=== PATIENT | female | born 1970 ===

== ENCOUNTER 2017-09-07 11:06 | Emergency (ER) | payer OTHER ==
[2017-09-07 11:06] VITALS: BMI 31.8
[2017-09-07 11:19] VITALS: BP 120/76; PULSE 62; RESP 16; O2SAT 99
--- NOTE | 2017-09-07 11:56 | ED PDOC ---
HPI: General Adult Time Seen by Provider: 09/07/17 11:56 Chief Complaint (Nursing): Abnormal Skin Integrity Chief Complaint (Provider): leg pain History Per: Patient, Family (Patient's daughter at bedside is translating for patient in Sudanese) Additional Complaint(s): 37-year-old female presents with redness, pain and swelling to left leg. Patient states on Sunday she woke up with a small puncture wound to leg. She was seen by primary doctor and started on Bactroban but today presents to ED with worsening swelling, pain and redness. Patient denies fever or chills. No active drainage or bleeding from wound. PMD: Abdirashid Mchugh Past Medical History Reviewed: Historical Data, Nursing Documentation, Vital Signs Vital Signs: Last Vital Signs Temp 98.3 F 09/07/17 11:15 Pulse 62 09/07/17 11:15 Resp 16 09/07/17 11:15 BP 120/76 09/07/17 11:15 Pulse Ox 99 09/07/17 11:56 - Medical History PMH: No Chronic Diseases - Family History Family History: States: No Known Family Hx - Living Arrangements Living Arrangements: With Family - Social History Current smoker - smoking cessation education provided: No Ex-Smoker (has not smoked in the last 12 months): No Alcohol: None Drugs: Denies - Home Medications Home Medications: Ambulatory Orders Medication Instructions Recorded Naproxen [Naprosyn] 500 mg PO BID PRN #30 tab 03/04/16 Cyclobenzaprine [Cyclobenzaprine 10 mg PO TID PRN #15 tab 04/23/16 HCl] Naproxen [Naprosyn] 500 mg PO BID PRN #15 tablet 04/23/16 Amoxicillin/Clavulanate [Augmentin 1 tab PO BID #14 tab 09/07/17 875 MG-125 MG] Clindamycin [Cleocin] 300 mg PO QID #28 cap 09/07/17 Ibuprofen [Motrin Tab] 800 mg PO Q8 PRN #20 tab 09/07/17 - Allergies Allergies/Adverse Reactions: Allergies Allergy/AdvReac Type Severity Reaction Status Date / Time No Known Allergies Allergy Verified 09/07/17 11:45 Review of Systems ROS Statement: Except As Marked, All Systems Reviewed And Found Negative Constitutional: Negative for: Fever, Chills Musculoskeletal: Positive for: Other (left leg pain) Physical Exam - Reviewed Nursing Documentation Reviewed: Yes Vital Signs Reviewed: Yes - Physical Exam Appears: Positive for: Well, Non-toxic, No Acute Distress Skin: Positive for: Normal Color. Negative for: Rash Eye Exam: Positive for: Normal appearance Cardiovascular/Chest: Positive for: Regular Rate, Rhythm Respiratory: Positive for: Normal Breath Sounds Extremity: Positive for: Other (Puncture wound noted to medial left [place] with localized erythema, warmth and tenderness consistent with cellulitis, no abscess formation, no active drainage or bleeding, no erythematous streaking, normal distal sensation) Neurologic/Psych: Positive for: Alert, Oriented - ECG O2 Sat by Pulse Oximetry: 99 Pulse Ox Interpretation: Normal Medical Decision Making Medical Decision Making: Impression: Cellulitis of left leg Patient was given Motrin dose in ED. Prescriptions for Augmentin and clindamycin provided along with Motrin prescription. Advised elevation of leg and wound recheck in 2-3 days. Disposition - Clinical Impression Clinical Impression: Cellulitis of leg - Patient ED Disposition Is Patient to be Admitted: No Counseled Patient/Family Regarding: Diagnosis, Need For Followup, Rx Given - Disposition Referrals: [facility] [Outside] Disposition: Routine/Home Disposition Time: 12:52 Condition: STABLE Additional Instructions: Take prescription meds as directed. Elevate leg and keep area clean and dry. Wound recheck in 2-3 days. Prescriptions: Amoxicillin/Clavulanate [Augmentin 875 MG-125 MG] 1 tab PO BID #14 tab Clindamycin [Cleocin] 300 mg PO QID #28 cap Ibuprofen [Motrin Tab] 800 mg PO Q8 PRN #20 tab PRN Reason: Pain, Moderate (4-7) Instructions: Cellulitis (Skin Infection), Adult (DC) Forms: [employer] (Sudanese) Print Language: MALAY
[2017-09-07 14:44] VITALS: TEMP 98.9
== END 2017-09-07 13:35 | disposition home or self-care (01) ==
LOC: H.ER 11:06
DX: L03.116 Cellulitis of left lower limb (principal)

== ENCOUNTER 2018-02-10 11:35 | Emergency (ER) | payer OTHER ==
[2018-02-10 11:43] VITALS: BP 129/89; PULSE 62; RESP 16; TEMP 98.5; O2SAT 98; BMI 37.8
--- NOTE | 2018-02-10 12:29 | ED PDOC ---
HPI: Skin/Bite Injury Time Seen by Provider: 02/10/18 12:15 Chief Complaint (Nursing): Bite Chief Complaint (Provider): Bite History Per: Patient History/Exam Limitations: no limitations Onset/Duration Of Symptoms: Mins (just prior to arrival) Current Symptoms Are (Timing): Still Present Location Of Injury: Left: Forearm Quality Of Symptoms: Painful Severity: Moderate Additional Complaint(s): 47 year old female with no past medical history presents to the ED for an evaluation of a dog bite to her left forearm that occurred just prior to arrival. Patient reports that the dog is her dog, and its rabies vaccination is up to date. Patient reports having pain to the left forearm. Patient is unsure of last tetanus. Patient denies having any other complaints. PMD: Vivi Fink MD - Animal Bite Description Of The Animal: Other (patient's pet) Animal's Immunization Status: UTD Past Medical History Reviewed: Historical Data, Nursing Documentation, Vital Signs Vital Signs: Last Vital Signs Temp 98.5 F 02/10/18 11:43 Pulse 62 02/10/18 11:43 Resp 16 02/10/18 11:43 BP 129/89 02/10/18 11:43 Pulse Ox 98 02/10/18 11:43 MICHELA Report Viewed: Yes - Medical History PMH: No Chronic Diseases Denies: Chronic Kidney Disease - Surgical History Other surgeries: ear surgery - Family History Family History: States: No Known Family Hx - Social History Current smoker - smoking cessation education provided: No Alcohol: None Drugs: Denies - Immunization History Hx Tetanus Toxoid Vaccination: No Hx Influenza Vaccination: No Hx Pneumococcal Vaccination: No - Home Medications Home Medications: Ambulatory Orders Medication Instructions Recorded Naproxen [Naprosyn] 500 mg PO BID PRN #30 tab 03/04/16 Cyclobenzaprine [Cyclobenzaprine 10 mg PO TID PRN #15 tab 04/23/16 HCl] Naproxen [Naprosyn] 500 mg PO BID PRN #15 tablet 04/23/16 Amoxicillin/Clavulanate [Augmentin 1 tab PO BID #14 tab 09/07/17 875 MG-125 MG] Clindamycin [Cleocin] 300 mg PO QID #28 cap 09/07/17 Ibuprofen [Motrin Tab] 800 mg PO Q8 PRN #20 tab 09/07/17 Amoxicillin/Clavulanate [Augmentin 1 tab PO BID #10 tab 02/10/18 875 MG-125 MG] Ibuprofen [Motrin] 600 mg PO Q8 PRN #21 tab 02/10/18 - Allergies Allergies/Adverse Reactions: Allergies Allergy/AdvReac Type Severity Reaction Status Date / Time No Known Allergies Allergy Verified 09/07/17 11:45 Review of Systems ROS Statement: Except As Marked, All Systems Reviewed And Found Negative Musculoskeletal: Positive for: Other (left forearm pain) Physical Exam - Reviewed Nursing Documentation Reviewed: Yes Vital Signs Reviewed: Yes - Physical Exam Appears: Positive for: Well, Non-toxic, No Acute Distress Head Exam: Positive for: ATRAUMATIC, NORMOCEPHALIC Skin: Positive for: Normal Color, Warm, Dry Extremity: Positive for: Other (1 cm laceration to left forearm, moderate ecch ymosis surrounding) Neurologic/Psych: Positive for: Alert, Oriented (3x) - ECG O2 Sat by Pulse Oximetry: 98 (RA) Pulse Ox Interpretation: Normal - Progress ED Course And Treament: forearm xry: no fx no teeth/foreign body augmentin 875mg x 1 dose tdap 0.5 ml IM Wound irrigated with betadiene/normal saline. two steri strips placed on wound. Medical Decision Making Medical Decision Makin:15 Initial impression: 47 year old female with a dog bite. Initial plan: * XRay forearm left * adacel 0.5 ml IM * augmentin 875 mg-125 mg tab 1 tab PO * motrin tab 600 mg PO * reevaluation Scribe Attestation: Documented by Cristiane Trivedi, acting as a scribe for Rachel Abraham PA-C. Provider Scribe Attestation: All medical record entries made by the Scribe were at my direction and personally dictated by me. I have reviewed the chart and agree that the record accurately reflects my personal performance of the history, physical exam, medical decision making, and the department course for this patient. I have also personally directed, reviewed, and agree with the discharge instructions and disposition. Disposition - Clinical Impression Clinical Impression: Animal bite wound - Patient ED Disposition Is Patient to be Admitted: No - Disposition Disposition: Routine/Home Disposition Time: 12:48 Condition: FAIR Additional Instructions: REGRESA EN 2 GONZALES PARA REVISAR HERIDA Prescriptions: Amoxicillin/Clavulanate [Augmentin 875 MG-125 MG] 1 tab PO BID #10 tab Ibuprofen [Motrin] 600 mg PO Q8 PRN #21 tab PRN Reason: Pain, Moderate (4-7) Instructions: Animal Bites (DC) Forms: [facility] ED School/Work Excuse Print Language: BAHAMIAN
[2018-02-10] MEDS ORDERED: Tdap Vaccine 0.5 ml Vial (10-64 yrs) IM ONE (12:44)
[2018-02-10] MEDS: Amoxicillin-Clav 875-125 mg Tab PO STA (13:01)
[2018-02-10] MEDS: Tdap Vaccine 0.5 ml Vial (10-64 yrs) IM ONE (13:02)
--- NOTE | 2018-02-10 13:52 | RAD ---
Date of service: 02/10/2018 PROCEDURE: Radiographs of the Left Forearm HISTORY: dogbite COMPARISON: None available. TECHNIQUE: Frontal and lateral views obtained. FINDINGS: BONES: No evidence of acute displaced fracture nor dislocation. No obvious cortical destructive changes.. JOINT SPACES: Unremarkable. OTHER FINDINGS: Infiltration changes are seen within the medial soft tissues at the level of the mid to distal forearm with what appears represent small amount of subcutaneous air. Possibility of underlying cellulitis cannot be excluded. IMPRESSION: No evidence of acute displaced fracture nor dislocation.. No cortical destructive changes Infiltration changes and what appears to represent a small amount subcutaneous air within the medial soft tissues at the mid and distal forearm. Cellulitis not excluded.
== END 2018-02-10 13:30 | disposition home or self-care (01) ==
LOC: H.ER 11:35
DX: S51.852A Open bite of left forearm, initial encounter (principal); W54.0XXA Bitten by dog, initial encounter; Y92.89 Other specified places as the place of occurrence of the external cause

== ENCOUNTER 2018-02-12 17:16 | Emergency (ER) | payer OTHER ==
[2018-02-12 17:16] VITALS: BMI 37.8
[2018-02-12 17:27] VITALS: BP 136/83; PULSE 68; RESP 16; TEMP 98.8
[2018-02-12 18:20] VITALS: O2SAT 100
--- NOTE | 2018-02-12 18:23 | ED PDOC ---
HPI: Wound Care - HPI Time Seen by Provider: 02/12/18 17:29 Chief Complaint (Nursing): Wound Check History Per: Patient Additional Complaint(s): Pt. here for wound check on L forearm. States she was bitten by her dog 2 days ago and was seen in this ED. Currently on Augmentin. Offers no new complaints at this time. Denies fever, discharge. Past Medical History Reviewed: Historical Data, Nursing Documentation, Vital Signs Vital Signs: Last Vital Signs Temp 98.8 F 02/12/18 17:23 Pulse 68 02/12/18 17:23 Resp 16 02/12/18 17:23 BP 136/83 02/12/18 17:23 Pulse Ox 100 02/12/18 18:14 - Medical History PMH: Denies: Chronic Kidney Disease - Family History Family History: States: No Known Family Hx - Immunization History Hx Tetanus Toxoid Vaccination: No Hx Influenza Vaccination: No Hx Pneumococcal Vaccination: No - Home Medications Home Medications: Ambulatory Orders Medication Instructions Recorded RX: Naproxen [Naprosyn] 500 mg PO BID PRN #30 tab 03/04/16 Cyclobenzaprine [Cyclobenzaprine 10 mg PO TID PRN #15 tab 04/23/16 HCl] Naproxen [Naprosyn] 500 mg PO BID PRN #15 tablet 04/23/16 Amoxicillin/Clavulanate [Augmentin 1 tab PO BID #14 tab 09/07/17 875 MG-125 MG] Ibuprofen [Motrin Tab] 800 mg PO Q8 PRN #20 tab 09/07/17 RX: Clindamycin [Cleocin] 300 mg PO QID #28 cap 09/07/17 Amoxicillin/Clavulanate [Augmentin 1 tab PO BID #10 tab 02/10/18 875 MG-125 MG] Ibuprofen [Motrin] 600 mg PO Q8 PRN #21 tab 02/10/18 - Allergies Allergies/Adverse Reactions: Allergies Allergy/AdvReac Type Severity Reaction Status Date / Time No Known Allergies Allergy Verified 09/07/17 11:45 Review of Systems ROS Statement: Except As Marked, All Systems Reviewed And Found Negative Musculoskeletal: Positive for: Arm Pain Physical Exam - Physical Exam Appears: Positive for: Well, Non-toxic, No Acute Distress Skin: Positive for: Normal Color, Warm. Negative for: Rash Pulses-Radial (L): 2+ Pulses-Radial (R): 2+ Extremity: Positive for: Other (L ventral forearm with 2 superficial wounds with surrounding ecchymosis without discharge, swelling, erythema; FROM actively of Left upper extremity) - ECG O2 Sat by Pulse Oximetry: 100 - Progress ED Course And Treament: Wound cleansed. New steri-strips applied. Wound care instructions given. Advised to complete Augmentin as previously prescribed. Disposition - Clinical Impression Clinical Impression: Visit for wound check - Patient ED Disposition Is Patient to be Admitted: No - Disposition Referrals: [facility] [Outside] Disposition Time: 17:30 Condition: STABLE Additional Instructions: COMPLETE COURSE OF AUGMENTIN RETURN TO ED IMMEDIATELY IF SYMPTOMS WORSEN BHARGAVI GRAY, thank you for letting us take care of you today. Your provider was Tab Celaya MD and you were treated for DOG BITE. The emergency medical care you received today was directed at your acute symptoms. If you were prescribed any medication, please fill it and take as directed. It may take several days for your symptoms to resolve. Return to the Emergency Department if your symptoms worsen, do not improve, or if you have any other problems. Please contact your doctor or call one of the physicians/clinics you have been referred to that are listed on the Patient Visit Information form that is included in your discharge packet. Bring any paperwork you were given at discharge with you along with any medications you are taking to your follow up visit. Our treatment cannot replace ongoing medical care by a primary care provider outside of the emergency department. Thank you for allowing the [facility] team to be part of your care today. If you had an X-Ray or CT scan: A Radiologist will review the ED reading if any change in treatment is needed we will contact you. If you had a blood, urine, or wound culture: It will take several days for the results, if any change in treatment is needed we will contact you. If you had an STI test: It will take 48 hours for the results. Please call after 1 week if you have not heard back. Instructions: Wound Care (DC) Forms: [employer] (Congolese) Print Language: LATVIAN
== END 2018-02-12 19:00 | disposition home or self-care (01) ==
LOC: H.ER 17:16
DX: Z48.00 Encounter for change or removal of nonsurgical wound dressing (principal)

== ENCOUNTER 2018-02-20 18:58 | Emergency (ER) | payer OTHER ==
[2018-02-20 18:58] VITALS: BMI 37.8
[2018-02-20 19:23] VITALS: BP 119/83; PULSE 68; RESP 16; TEMP 98; O2SAT 98
--- NOTE | 2018-02-20 19:42 | ED PDOC ---
HPI: General Adult Time Seen by Provider: 02/20/18 19:35 Chief Complaint (Nursing): Wound Check Chief Complaint (Provider): Wound Check History Per: Patient History/Exam Limitations: no limitations Onset/Duration Of Symptoms: Days Current Symptoms Are (Timing): Better Additional Complaint(s): 47 y/o right hand dominant female presents to the ED for an evaluation of wound check on her left hand. Patient states last week she was bitten by a dog for which she was evaluated in the ED. The site is healing and patient has completed her antibiotics. Otherwise she denies pain, numbness, tingling, fever or weakness. PMD: Vivi Fink Past Medical History Reviewed: Historical Data, Nursing Documentation, Vital Signs Vital Signs: Last Vital Signs Temp 98.0 F 02/20/18 19:19 Pulse 68 02/20/18 19:19 Resp 16 02/20/18 19:19 BP 119/83 02/20/18 19:19 Pulse Ox 98 02/20/18 19:19 - Medical History PMH: No Chronic Diseases Denies: Chronic Kidney Disease - Family History Family History: States: Unknown Family Hx - Immunization History Hx Tetanus Toxoid Vaccination: No Hx Influenza Vaccination: No Hx Pneumococcal Vaccination: No - Home Medications Home Medications: Ambulatory Orders Medication Instructions Recorded Naproxen [Naprosyn] 500 mg PO BID PRN #30 tab 03/04/16 Cyclobenzaprine [Cyclobenzaprine 10 mg PO TID PRN #15 tab 04/23/16 HCl] Naproxen [Naprosyn] 500 mg PO BID PRN #15 tablet 04/23/16 Amoxicillin/Clavulanate [Augmentin 1 tab PO BID #14 tab 09/07/17 875 MG-125 MG] Clindamycin [Cleocin] 300 mg PO QID #28 cap 09/07/17 Ibuprofen [Motrin Tab] 800 mg PO Q8 PRN #20 tab 09/07/17 Amoxicillin/Clavulanate [Augmentin 1 tab PO BID #10 tab 02/10/18 875 MG-125 MG] Ibuprofen [Motrin] 600 mg PO Q8 PRN #21 tab 02/10/18 - Allergies Allergies/Adverse Reactions: Allergies Allergy/AdvReac Type Severity Reaction Status Date / Time No Known Allergies Allergy Verified 02/20/18 19:19 Review of Systems ROS Statement: Except As Marked, All Systems Reviewed And Found Negative Constitutional: Negative for: Fever, Chills Musculoskeletal: Negative for: Arm Pain, Hand Pain Skin: Negative for: Rash Neurological: Negative for: Weakness, Numbness Physical Exam - Reviewed Nursing Documentation Reviewed: Yes Vital Signs Reviewed: Yes - Physical Exam Appears: Positive for: Well, Non-toxic, No Acute Distress Head Exam: Positive for: ATRAUMATIC, NORMAL INSPECTION, NORMOCEPHALIC Skin: Positive for: Normal Color, Warm, Dry. Negative for: Rash Eye Exam: Positive for: EOMI, Normal appearance, PERRL Cardiovascular/Chest: Positive for: Regular Rate, Rhythm. Negative for: Murmur Respiratory: Positive for: Normal Breath Sounds. Negative for: Decreased Breath Sounds, Wheezing, Respiratory Distress Extremity: Positive for: Normal ROM (no warmth, redness or red streaking), Other (Mild bruising on the site of bite on left arm, no infection, drainage, discharge, ecchymosis or inflammation. ). Negative for: Tenderness, Deformity, Swelling Neurologic/Psych: Positive for: Alert, Oriented (x3). Negative for: Motor/Sensory Deficits - ECG O2 Sat by Pulse Oximetry: 98 (RA) Pulse Ox Interpretation: Normal Medical Decision Making Medical Decision Making: Time: 1934 Scribe Attestation: Documented by Sammie Guerra, acting as a scribe for Ted Rogel PA-C Provider Scribe Attestation: All medical record entries made by the Scribe were at my direction and personally dictated by me. I have reviewed the chart and agree that the record accurately reflects my personal performance of the history, physical exam, medical decision making, and the department course for this patient. I have also personally directed, reviewed, and agree with the discharge instructions and disposition. Disposition - Clinical Impression Clinical Impression: Encounter for re-check of laceration wound, Contusion shoulder/arm Doctor Will See Patient In The: Office - Disposition Disposition: Routine/Home Disposition Time: 19:58 Condition: STABLE Instructions: Contusion (DC) Forms: [employer] (Indonesian)
== END 2018-02-20 20:16 | disposition home or self-care (01) ==
LOC: H.ER 18:58
DX: Z48.00 Encounter for change or removal of nonsurgical wound dressing (principal)